=== PATIENT | female | born 1975 ===

== ENCOUNTER 2017-05-25 08:48 | Day surgery (SDC) | payer OTHER | END 2017-05-25 15:25 | disposition home or self-care (01) | LOC: CIR.AMB 08:48 | DX: N87.0 Mild cervical dysplasia (principal); N72 Inflammatory disease of cervix uteri ==

== ENCOUNTER 2018-05-17 07:30 | Inpatient (IN) | payer OTHER ==
[~2018-05-17] VITALS: Ht 165.1 cm; Wt 117.9 kg
== END 2018-05-22 16:15 | disposition home or self-care (01) | DRG 743 ==
LOC: OB/GYN 05-19 06:26 → O/R 05-19 06:26 → SURH 05-19 07:30 → OB/GYN 05-19 15:52
PROVIDERS: ADMIT Obstetrics & Gynecology Obstetrics
PROC: 0UT00ZZ Resection of Right Ovary, Open Approach (ICD-10-PCS; 2018-05-19)
PROC: 0UT90ZZ Resection of Uterus, Open Approach (ICD-10-PCS; principal; 2018-05-19 17:30)
DX: D25.1 Intramural leiomyoma of uterus (principal); N83.8 Other noninflammatory disorders of ovary, fallopian tube and broad ligament

== ENCOUNTER 2019-12-09 08:35 | Day surgery (SDC) | payer OTHER ==
[~2019-12-09 08:35] MED LIST: NORVASC5 MG PO; TRUVADA PO; WELLBUTRIN XL300 MG PO
== END 2019-12-09 19:50 | disposition home or self-care (01) ==
LOC: CIR.AMB 08:35
PROVIDERS: ATTEND Obstetrics & Gynecology Obstetrics
DX: N72 Inflammatory disease of cervix uteri (principal); Z20.828 Contact with and (suspected) exposure to other viral communicable diseases